=== PATIENT | male | born 1980 ===

== ENCOUNTER 2018-11-04 01:12 | Emergency (ER) | payer BC ==
[2018-11-04 01:19] VITALS: TEMP 98
[2018-11-04] MEDS ORDERED: Sodium Chloride 0.9% 1,000 ML IV STA ×2 (01:57→04:00)
[2018-11-04 02:25] LABS: BASO # 0.1 K/uL (0.0-0.2); BASO % 0.7 % (0.0-2.0); EOS # 0.3 K/uL (0.0-0.7); EOS % 2.7 % (0.0-4.0); HEMOGLOBIN 15.6 g/dL (12.0-18.0); LYMPH # 2.6 K/uL (1.0-4.3); MEAN CELL VOLUME 85.7 fl (80.0-94.0); MEAN CORPUSCULAR HEMOGLOBIN 28.7 pg (27.0-31.0); MEAN CORPUSCULAR HGB CONC 33.5 g/dL (33.0-37.0); MEAN PLATELET VOLUME 8.2 fl (7.2-11.7); MONO # 0.8 K/uL (0.0-0.8); MONO % 7.4 % (0.0-10.0); NEUT # 6.6 K/uL (1.8-7.0); NEUT % 64.2 % (50.0-75.0); NRBC % 0.2 % (0.0-0.0); RBC 5.43 Mil/uL (4.40-5.90); WHITE BLOOD COUNT 10.3 K/uL (4.8-10.8)
[2018-11-04 02:29] LABS: INR 1.1; PROTHROMBIN TIME 12.3 Seconds (9.8-13.1)
[2018-11-04 02:32] LABS: PARTIAL THROMBOPLASTIN TIME 29.2 Seconds (25.6-37.1)
[2018-11-04 02:35] LABS: ALB/GLOB RATIO 1.4 (1.0-2.1); ALBUMIN 4.5 g/dL (3.5-5.0); ALT/SGPT 39 U/L (21-72); AST/SGOT 33 U/L (17-59); BLOOD UREA NITROGEN 18 mg/dl (9-20); CALCIUM 9.4 mg/dL (8.4-10.2); GFR NON-AFRICAN AMERICAN > 60
[2018-11-04 02:36] LABS: ACETAMINOPHEN < 10.0 ug/ml (10.0-30.0); SALICYLATE < 1.0 mg/dl
[2018-11-04 04:59] LABS: URINE BILIRUBIN NEGATIVE (NEGATIVE); URINE BLOOD NEGATIVE (NEGATIVE); URINE CLARITY CLEAR (Clear); URINE COLOR STRAW (YELLOW); URINE GLUCOSE (UA) NEG (NEGATIVE); URINE LEUKOCYTE ESTERASE NEG Leu/uL (Negative); URINE PROTEIN NEGATIVE (NEGATIVE); URINE UROBILINOGEN 0.2-1.0 mg/dL (0.2-1.0)
[2018-11-04 05:12] LABS: OPIATES, UR NEGATIVE (NEGATIVE)
[2018-11-04 05:16] LABS: BARBITURATES, UR NEGATIVE (NEGATIVE); BENZODIAZEPINES, UR NEGATIVE (NEGATIVE); PHENCYCLIDINE, UR NEGATIVE (NEGATIVE)
[2018-11-04 05:18] VITALS: BP 112/63; PULSE 77; RESP 16; O2SAT 99
--- NOTE | 2018-11-04 06:06 | ED PDOC ---
HPI: Psych/Substance Abuse Time Seen by Provider: 11/04/18 01:38 Chief Complaint (Nursing): Substance Abuse Chief Complaint (Provider): Substance Abuse History Per: Patient History/Exam Limitations: no limitations Onset/Duration Of Symptoms: Days Associated Symptoms: Anxiety Additional Complaint(s): 38 year old male presents to the ED for an evaluation of substance abuse. Patient states for the past 2 weeks, he feels anxious and stressed. Tonight, he took 2 tablets of Bendaryl 25mg and 6 to 7 tablets of doxylamine 25mg because he was unable to sleep and frustrated. Currently, he reports of dry mouth and restlessness. Otherwise, he denies chest pain, shortness of breath, nausea, vomiting, diarrhea or abdominal pain. PMD: unknown Past Medical History Reviewed: Historical Data, Nursing Documentation, Vital Signs Vital Signs: Last Vital Signs Temp 98 F 11/04/18 01:14 Pulse 77 11/04/18 04:23 Resp 16 11/04/18 04:23 BP 112/63 11/04/18 04:23 Pulse Ox 99 11/04/18 04:23 Primary Care Provider: FAMILY PROVIDER,NO - Medical History PMH: Asthma Denies: Chronic Kidney Disease - Surgical History Surgical History: Appendectomy, Tonsillectomy - Family History Family History: States: Unknown Family Hx - Allergies Allergies/Adverse Reactions: Allergies Allergy/AdvReac Type Severity Reaction Status Date / Time No Known Allergies Allergy Verified 11/04/18 01:14 Review of Systems ROS Statement: Except As Marked, All Systems Reviewed And Found Negative Cardiovascular: Negative for: Chest Pain Respiratory: Negative for: Cough, Shortness of Breath Gastrointestinal: Negative for: Nausea, Vomiting, Diarrhea Physical Exam - Reviewed Nursing Documentation Reviewed: Yes Vital Signs Reviewed: Yes - Physical Exam Appears: Positive for: Non-toxic, No Acute Distress Head Exam: Positive for: ATRAUMATIC, NORMAL INSPECTION, NORMOCEPHALIC Skin: Positive for: Normal Color, Warm, Dry. Negative for: Rash Eye Exam: Positive for: EOMI, Normal appearance, PERRL ENT: Positive for: Normal ENT Inspection Neck: Positive for: Normal, Painless ROM, Supple. Negative for: Decreased ROM Cardiovascular/Chest: Positive for: Regular Rate, Rhythm. Negative for: Murmur Respiratory: Positive for: Normal Breath Sounds. Negative for: Respiratory Distress Gastrointestinal/Abdominal: Positive for: Normal Exam, Soft. Negative for: Tenderness Back: Positive for: Normal Inspection Extremity: Positive for: Normal ROM. Negative for: Tenderness, Pedal Edema, Deformity Neurological/Psych: Positive for: Awake, Alert, Normal Tone, Oriented (x3), Mood/Affect (anxious ). Negative for: Motor/Sensory Deficits - Laboratory Results Result Diagrams: 11/04/18 02:15 11/04/18 02:15 Lab Results: PT 12.3 Seconds (9.8-13.1) 11/04/18 02:15 INR 1.1 11/04/18 02:15 APTT 29.2 Seconds (25.6-37.1) 11/04/18 02:15 Total Bilirubin 0.3 mg/dl (0.2-1.3) 11/04/18 02:15 AST 33 U/L (17-59) 11/04/18 02:15 ALT 39 U/L (21-72) 11/04/18 02:15 Alkaline Phosphatase 71 U/L (38-126) 11/04/18 02:15 Total Protein 7.8 G/DL (6.3-8.2) 11/04/18 02:15 Albumin 4.5 g/dL (3.5-5.0) 11/04/18 02:15 Globulin 3.3 gm/dL (2.2-3.9) 11/04/18 02:15 Albumin/Globulin Ratio 1.4 (1.0-2.1) 11/04/18 02:15 Urine Color Straw (YELLOW) 11/04/18 04:36 Urine Clarity Clear (Clear) 11/04/18 04:36 Urine pH 7.0 (5.0-8.0) 11/04/18 04:36 Ur Specific [place] 1.006 (1.003-1.030) 11/04/18 04:36 Urine Protein Negative mg/dL (NEGATIVE) 11/04/18 04:36 Urine Glucose (UA) Neg mg/dL (NEGATIVE) 11/04/18 04:36 Urine Ketones Negative mg/dL (NEGATIVE) 11/04/18 04:36 Urine Blood Negative (NEGATIVE) 11/04/18 04:36 Urine Nitrate Negative (NEGATIVE) 11/04/18 04:36 Urine Bilirubin Negative (NEGATIVE) 11/04/18 04:36 Urine Urobilinogen 0.2-1.0 mg/dL (0.2-1.0) 11/04/18 04:36 Ur Leukocyte Esterase Neg Adama/uL (Negative) 11/04/18 04:36 Urine RBC (Auto) < 1 /hpf (0-3) 11/04/18 04:36 Urine Microscopic WBC < 1 /hpf (0-5) 11/04/18 04:36 - ECG O2 Sat by Pulse Oximetry: 99 (RA) Pulse Ox Interpretation: Normal Medical Decision Making Medical Decision Making: Time: 155 Impression: 38yo male with unintentional overdose Plan: Acetaminophen Alcohol serum CMP Drug screen Salicylate Poison control CBC w/ differential PTT Prothrombin time Normal saline 1000 mls/hr Heplock insertion UA Reevaluation 015 Poison control teleconsulted who advised monitoring for present time 6AM Labs reviewed show no clinically significant abnormalities. Patient signed out to Dr Guaman at 7AM pending crisis evaluation Scribe Attestation: Documented by Yolanda Grewal, acting as a scribe for Ayo Avalos MD Provider Scribe Attestation: All medical record entries made by the Scribe were at my direction and personally dictated by me. I have reviewed the chart and agree that the record accurately reflects my personal performance of the history, physical exam, medic al decision making, and the department course for this patient. I have also personally directed, reviewed, and agree with the discharge instructions and disposition. Disposition - Clinical Impression Clinical Impression: Overdose of sleeping tabs, Insomnia - Disposition Referrals: [facility] [Outside] Disposition Time: 07:00 Condition: FAIR Instructions: Insomnia (DC), Accidental Overdose Forms: [employer] ([place])
[2018-11-04] MEDS ORDERED: Potassium Chloride 20 mEq ER Tab PO ONE (09:03)
--- NOTE | 2018-11-04 09:47 | ED PDOC ---
- Laboratory Results Result Diagrams: 11/04/18 02:15 11/04/18 02:15 Lab Results: PT 12.3 Seconds (9.8-13.1) 11/04/18 02:15 INR 1.1 11/04/18 02:15 APTT 29.2 Seconds (25.6-37.1) 11/04/18 02:15 Total Bilirubin 0.3 mg/dl (0.2-1.3) 11/04/18 02:15 AST 33 U/L (17-59) 11/04/18 02:15 ALT 39 U/L (21-72) 11/04/18 02:15 Alkaline Phosphatase 71 U/L (38-126) 11/04/18 02:15 Total Protein 7.8 G/DL (6.3-8.2) 11/04/18 02:15 Albumin 4.5 g/dL (3.5-5.0) 11/04/18 02:15 Globulin 3.3 gm/dL (2.2-3.9) 11/04/18 02:15 Albumin/Globulin Ratio 1.4 (1.0-2.1) 11/04/18 02:15 Urine Color Straw (YELLOW) 11/04/18 04:36 Urine Clarity Clear (Clear) 11/04/18 04:36 Urine pH 7.0 (5.0-8.0) 11/04/18 04:36 Ur Specific [place] 1.006 (1.003-1.030) 11/04/18 04:36 Urine Protein Negative mg/dL (NEGATIVE) 11/04/18 04:36 Urine Glucose (UA) Neg mg/dL (NEGATIVE) 11/04/18 04:36 Urine Ketones Negative mg/dL (NEGATIVE) 11/04/18 04:36 Urine Blood Negative (NEGATIVE) 11/04/18 04:36 Urine Nitrate Negative (NEGATIVE) 11/04/18 04:36 Urine Bilirubin Negative (NEGATIVE) 11/04/18 04:36 Urine Urobilinogen 0.2-1.0 mg/dL (0.2-1.0) 11/04/18 04:36 Ur Leukocyte Esterase Neg Adama/uL (Negative) 11/04/18 04:36 Urine RBC (Auto) < 1 /hpf (0-3) 11/04/18 04:36 Urine Microscopic WBC < 1 /hpf (0-5) 11/04/18 04:36 - ECG O2 Sat by Pulse Oximetry: 99 (RA) Medical Decision Making Medical Decision Making: Evaluated by crisis. Partner contacted with no indication that this was an intentional OD. Pt denies SI. Disposition - Clinical Impression Clinical Impression: Overdose of sleeping tabs, Insomnia - POA Present On Arrival: None - Disposition Referrals: [facility] [Outside] Disposition: Routine/Home Disposition Time: 09:47 Condition: FAIR Instructions: Insomnia (DC), Accidental Overdose Forms: [employer] (Turkish)
== END 2018-11-04 12:26 | disposition home or self-care (01) ==
LOC: H.ER 01:12
DX: G47.00 Insomnia, unspecified (principal); T42.71XA Poisoning by unspecified antiepileptic and sedative-hypnotic drugs, accidental (unintentional), initial encounter
CPT/HCPCS: 80053; 81003; 82948; 85025; 85610; 85730; 96360; 96361; 99285; G0480; J7030